=== PATIENT | female | born 1985 | race Caucasian/White ===

== ENCOUNTER → 2016-09-06 | Outpatient (CLI) | payer OTHER ==
[~2016-09-06] MED LIST: CHOL100010 PO; OMEP40CA PO; PRENTAB26 PO; VITA400C28 PO; VITACAP26 PO
--- NOTE | 2016-09-06 12:03 | DIAGNOSTIC IMAGING REPORT ---
CHEST 2 VIEWS ROUTINE HISTORY: J06.9 Viral URI with [id number] COMPARISON: Chest 05/06/2015. FINDINGS: The lungs are clear. Cardiac silhouette is normal in size. No pleural effusions. No pneumothorax. IMPRESSION: No acute process. Electronically signed by: Feroz Miranda M.D. 09/06/2016 12:01 PM Dictated Date/Time: 09/06/2016 12:00 PM
[2016-09-06 12:18] LABS: BASO % 0.1 %; BASO ABS # 0.01 K/uL (0-0.2); COMPLETE YES; EOS % 4.1 %; HEMATOCRIT 40.3 % (37-47); IG% 0.3 %; LYMPH % 35.3 %; LYMPH ABS # 2.57 K/uL (1.2-3.4); MEAN CELL VOLUME 85.2 fL (80-100); MEAN PLATELET VOLUME 10.7 fL (7.4-10.4); MONO % 5.1 %; NEUT % 55.1 %; PLATELET COUNT 221 K/uL (130-400); RED BLOOD COUNT 4.73 M/uL (4.2-5.4); WHITE BLOOD COUNT 7.28 K/uL (4.8-10.8)
[2016-09-06 12:36] LABS: PREG INTERNAL NEGATIVE QC NEG CLEAR BACKGROUND; PREG INTERNAL POSITIVE QC POS CONTROL LINE
[2016-09-06 12:49] LABS: ALT/SGPT 29 U/L (12-78); BLOOD UREA NITROGEN 12 mg/dl (7-18); BUN/CREATININE RATIO 18.8 (10-20); CALCIUM 9.7 mg/dl (8.5-10.1); CARBON DIOXIDE 28 mmol/L (21-32); CHLORIDE 104 mmol/L (98-107); CHOLESTEROL 222 mg/dl (0-200); CREATININE 0.65 mg/dl (0.60-1.20); GLUCOSE 90 mg/dl (70-99); POTASSIUM 3.9 mmol/L (3.5-5.1); SODIUM 142 mmol/L (136-145); TRIGLYCERIDES 125 mg/dl (0-150); VERY LOW DENSITY LIPOPROT CALC 25 mg/dl
[2016-09-06 12:58] LABS: ALB/GLOB RATIO 0.9 (0.9-2); ALKALINE PHOSPHATASE 90 U/L (45-117); AST/SGOT 16 U/L (15-37); CHOLESTEROL/HDL RATIO 4.9; HDL CHOLESTEROL 45 mg/dl; LDL CHOLESTEROL CALCULATED 152 mg/dl
== END | disposition home or self-care (01) ==
LOC: C.LAB1850 11:17
PROVIDERS: ATTEND Internal Medicine
DX: J06.9 Acute upper respiratory infection, unspecified (principal); R53.83 Other fatigue; E66.9 Obesity, unspecified

== ENCOUNTER → 2016-10-11 | Outpatient (CLI) | payer OTHER | END | disposition home or self-care (01) | LOC: C.PAPS 09:31 | PROVIDERS: ATTEND Obstetrics & Gynecology | DX: Z12.4 Encounter for screening for malignant neoplasm of cervix (principal) ==

== ENCOUNTER → 2016-10-11 | Outpatient (CLI) | payer OTHER ==
[2016-10-14 13:24] LABS: HERPES SIMPLEX CULT SOURCE GENITAL-VULVA; HERPES SIMPLEX VIRUS CULT NOT ISOLATED (NOT ISOLATED)
== END | disposition home or self-care (01) ==
LOC: C.LABSPEC 15:24
PROVIDERS: ATTEND Obstetrics & Gynecology
DX: N76.6 Ulceration of vulva (principal)

== ENCOUNTER → 2016-11-28 | Outpatient (CLI) | payer OTHER | END | disposition home or self-care (01) | LOC: C.LAB1850 15:20 | PROVIDERS: ATTEND Internal Medicine | DX: E55.9 Vitamin D deficiency, unspecified (principal) ==

== ENCOUNTER → 2016-12-05 | Outpatient (CLI) | payer OTHER ==
--- NOTE | 2016-12-05 10:42 | DIAGNOSTIC IMAGING REPORT ---
LEFT AXILLARY ULTRASOUND CLINICAL HISTORY: M79.622 Pain in left axilla COMPARISON STUDY: None. FINDINGS: No fluid collections or masses within the left axilla. There is a 1.2 x 0.8 x 0.5 cm left axillary lymph node. This contains a normal fatty hilum and a normal cortex. Therefore, this is considered to be benign. IMPRESSION: A benign-appearing left axillary lymph node. Otherwise, no abnormality within the left axilla. Electronically signed by: Feroz Miranda M.D. 12/05/2016 10:40 AM Dictated Date/Time: 12/05/2016 10:39 AM
== END | disposition home or self-care (01) ==
LOC: C.ULTR 10:08
PROVIDERS: ATTEND Internal Medicine
DX: M79.622 Pain in left upper arm (principal)

== ENCOUNTER → 2017-01-12 | Outpatient (CLI) | payer OTHER ==
--- NOTE | 2017-01-12 14:04 | DIAGNOSTIC IMAGING REPORT ---
KUB HISTORY: R30.0 Burning with [id number] COMPARISON: Abdomen and pelvis CT 05/06/2015. FINDINGS: The bowel gas pattern is unremarkable. There are no dilated loops of small bowel to suggest an obstruction. No renal calculi. No ureteral calculi. No pneumoperitoneum or pneumatosis. Small round calcification in the left deep pelvis is consistent with a phlebolith. This remains unchanged. IMPRESSION: No renal or ureteral stones. Electronically signed by: Feroz Miranda M.D. 01/12/2017 2:03 PM Dictated Date/Time: 01/12/2017 2:02 PM
[2017-01-12 14:44] LABS: BLOOD UREA NITROGEN 14 mg/dl (7-18); BUN/CREATININE RATIO 21.5 (10-20); CALCIUM 9.8 mg/dl (8.5-10.1); CARBON DIOXIDE 30 mmol/L (21-32); CHLORIDE 107 mmol/L (98-107); CREATININE 0.64 mg/dl (0.60-1.20); GLUCOSE 88 mg/dl (70-99); POTASSIUM 4.3 mmol/L (3.5-5.1); SODIUM 142 mmol/L (136-145)
[2017-01-12 15:35] LABS: URINE APPEARANCE CLEAR (CLEAR); URINE BILIRUBIN NEG (NEG); URINE COLOR DK YELLOW; URINE NITRITE NEG (NEG); URINE SPECIFIC GRAVITY 1.028 (1.000-1.030); UROBILINOGEN NEG (NEG); ZZUR CULT IF INDIC CLEAN CATCH NO
[2017-01-12 15:45] LABS: MANUAL MICROSCOPIC REQUIRED? NO; REVIEW REQ? NO
== END | disposition home or self-care (01) ==
LOC: C.RAD1850 13:23
PROVIDERS: ATTEND Internal Medicine
DX: R30.0 Dysuria (principal); M54.5 Low back pain

== ENCOUNTER → 2017-01-18 | Outpatient (CLI) | payer OTHER ==
--- NOTE | 2017-01-18 13:25 | DIAGNOSTIC IMAGING REPORT ---
ULTRASOUND KIDNEYS AND BLADDER CLINICAL HISTORY: Low back pain. COMPARISON STUDY: Abdominal CT dated 05/06/2015. TECHNIQUE: Real-time, grayscale, and color flow sonography of the kidneys and bladder is performed. Images are reviewed in the transverse and longitudinal planes. FINDINGS: Kidneys: The kidneys are normal in size and echotexture. The right kidney measures 11.0 x 4.3 x 5.1 cm and the left kidney measures lung 0.6 x 5.6 x 4.8 cm. There is no hydronephrosis. No shadowing renal calculi are identified. There is no sonographic evidence of contour deforming renal mass lesion. No perinephric fluid is identified. Bladder: The bladder is normal in appearance. Bilateral ureteral jets were seen. IMPRESSION: Unremarkable sonographic assessment of the kidneys and bladder. Electronically signed by: Kobe Rodney M.D. 01/18/2017 1:24 PM Dictated Date/Time: 01/18/2017 1:23 PM
== END | disposition home or self-care (01) ==
LOC: C.ULTR 12:48
PROVIDERS: ATTEND Internal Medicine
DX: M54.5 Low back pain (principal)

== ENCOUNTER → 2017-11-28 | Outpatient (CLI) | payer OTHER ==
[2017-11-28 12:24] LABS: BASO % 0.3 %; BASO ABS # 0.02 K/uL (0-0.2); EOS % 2.6 %; EOS ABS # 0.17 K/uL (0-0.5); HEMATOCRIT 39.6 % (37-47); HEMOGLOBIN 13.6 g/dL (12.0-16.0); IG# 0.02 K/uL (0.00-0.02); LYMPH % 37.2 %; LYMPH ABS # 2.46 K/uL (1.2-3.4); MEAN CELL VOLUME 83.9 fL (80-100); MEAN CORPUSCULAR HEMOGLOBIN 28.8 pg (25-34); MEAN CORPUSCULAR HGB CONC 34.3 g/dl (32-36); MEAN PLATELET VOLUME 10.1 fL (7.4-10.4); MONO % 5.3 %; MONO ABS # 0.35 K/uL (0.11-0.59); NEUT % 54.3 %; NEUT ABS # 3.59 K/uL (1.4-6.5); PLATELET COUNT 245 K/uL (130-400); RED CELL DISTRIBUTION WIDTH CV 12.9 % (11.5-14.5); RED CELL DISTRIBUTION WIDTH SD 39.2 fL (36.4-46.3); WHITE BLOOD COUNT 6.61 K/uL (4.8-10.8)
== END | disposition home or self-care (01) ==
LOC: C.LAB1850 09:47
PROVIDERS: ATTEND Internal Medicine
DX: L65.9 Nonscarring hair loss, unspecified (principal); E55.9 Vitamin D deficiency, unspecified